=== PATIENT | female | born 1975 | race African-American/Black ===

== ENCOUNTER 2024-12-06 06:21 | Outpatient (REF) | payer OTHER, SELFPAY ==
--- NOTE | ~2024-12-06 | US_ITS ---
EXAMINATION: US PELVIS TRANSABDOMINAL AND TRANSVAGINAL HISTORY: Irregular menses, ? Perimenopause vs endo hyperplasia COMPARISON: There are no prior studies for comparison. TECHNIQUE: Transabdominal and endovaginal real-time 2D agrawal-scale ultrasound was performed. Color Doppler was also performed. FINDINGS: Uterus: The uterus is normal in size, measuring 8.6 x 5.5 x 6.5 cm. Myometrium has a heterogeneous echotexture. Multiple fibroids are noted including a 2.8 x 2.6 x 3.4 cm left posterior fibroid, a left-sided posterior probable subserosal fibroid measuring 2.1 x 1.7 x 2.1 cm, and a fundal fibroid measuring 3.6 x 2.9 x 3.7 cm. Endometrium: The endometrial stripe is not visualized. Right ovary: The right ovary measures 2.6 x 1.3 x 2.5 cm. The right ovary is normal in size and echotexture. Left ovary: The left ovary measures 2.8 x 1.8 x 1.7 cm. The left ovary is normal in size and echotexture. Color Doppler analysis of the bilateral ovarian arteries and veins is normal. Pelvic fluid: none. US/US pelvic and transvaginal IMPRESSION: Fibroid uterus as described. The endometrial stripe is not identified due to the presence of multiple fibroids. Electronically signed by: Ld Goldstein MD 12/06/2024 02:07 PM EDT
== END 2024-12-06 06:22 | disposition home or self-care (01) ==
LOC: HO.UMASIMG 06:21
PROVIDERS: Visit Provider Family Medicine
DX: N92.6 Irregular menstruation, unspecified (principal)
CPT/HCPCS: 76830; 76856

== ENCOUNTER → 2024-12-06 13:00 | Outpatient (BNV) | payer OTHER, SELFPAY | PROVIDERS: Visit Provider Radiology Diagnostic Radiology | DX: D25.9 Leiomyoma of uterus, unspecified (principal) | CPT/HCPCS: 76830; 76856 ==